=== PATIENT | female | born 1965 | race Caucasian/White ===

== ENCOUNTER 2018-04-04 08:50 | Emergency (ER) | payer MEDICAID ==
[~2018-04-04] VITALS: Ht 154.9 cm; Wt 63.0 kg
[2018-04-04 08:56] VITALS: BP 148/83
--- NOTE | 2018-04-04 08:59 | NUR ---
PT AMBULATES TO BED 4
--- NOTE | 2018-04-04 09:15 | NUR ---
52 YO F BIB SELF W/ C/O LEFT ARM PAIN 10/10 THAT IS SHARP AND THROBBING THAT RADIATES TO THE LEFT SIDE OF HER NECK X 2 DAYS. PT REPORTS THAT SHE DOES NOT RECALL AN INJURY, STATES THE ONLY THING SHE CAN THINK OF IS HOLDING/DANCING WITH HER 9 MONTH OLD GRANDDAUGHTER ON SATURDAY BEFORE THE PAIN BEGAN. REPORTS THAT SHE HAS NOT TAKEN MEDICATION FOR THE PAIN TODAY BECAUSE MOTRIN 800MG LAST NIGHT DID NOT HELP WITH THE PAIN. PT REPORTS THAT HEAT HAS BEEN EFFECTIVE. AAOX4. GCS 15. CMS INTACT. RR EVEN AND UNLABORED. LUNGS BILATERALLY CLEAR. ABD SOFT, NON-TENDER. ER MD SOW NOTIFIED. PT NEEDS MET. SAFETY PRECAUTIONS IN PLACE. WILL CONTINUE TO MONITOR.
--- NOTE | 2018-04-04 10:16 | NUR ---
XRAY AT BEDSIDE AT THIS TIME. WILL CONTINUE TO MONITOR.
[2018-04-04] MEDS ORDERED: KETOROLAC 30 MG/ML VIAL IM ONE (10:25)
[2018-04-04 11:22] VITALS: BP 123/71
--- NOTE | 2018-04-04 11:23 | NUR ---
Patient discharged with v/s stable. Written and verbal after care instructions given and explained. Patient alert, oriented and verbalized understanding of instructions. Ambulatory with steady gait. All questions addressed prior to discharge. ID band removed. Patient advised to follow up with PMD. Rx of Motrin and Medrol given. Patient educated on indication of medication including possible reaction and side effects. Opportunity to ask questions provided and answered.
== END 2018-04-04 11:23 | disposition home or self-care (01) ==
LOC: MED 08:50
DX: M75.32 Calcific tendinitis of left shoulder (principal)
CPT/HCPCS: 73030; 81002; 81025; 96372; 99284; J1885; Q0092

== ENCOUNTER 2023-02-13 17:06 | Emergency (ER) | payer MEDICAID, OTHER ==
[~2023-02-13] VITALS: Ht 154.9 cm; Wt 69.4 kg
[2023-02-13 17:09] VITALS: BP 132/88
[2023-02-13] MEDS ORDERED: KETOROLAC 30 MG/ML VIAL IM ONE (17:50)
--- NOTE | 2023-02-13 18:25 | NUR ---
AWAITING FOR RESULTS, TAKING PO ICED WATER, MEDICATED ORDERED
[2023-02-13] MEDS ORDERED: IBUP-2213 PO (18:27)
[2023-02-13] MEDS ORDERED: ACET-10509 PO (18:27)
[2023-02-13 19:41] VITALS: BP 132/88
--- NOTE | 2023-02-13 19:41 | NUR ---
Patient discharged with v/s stable. Written and verbal after care instructions given and explained. Patient verbalized understanding. Ambulatory with steady gait. Accompanied by family member home. All questions addressed prior to discharge. Advised to follow up with PMD.
== END 2023-02-13 22:25 | disposition home or self-care (01) ==
LOC: MED 17:06
DX: S60.021A Contusion of right index finger without damage to nail, initial encounter (principal); X58.XXXA Exposure to other specified factors, initial encounter; Y93.89 Activity, other specified; Y92.89 Other specified places as the place of occurrence of the external cause; Y99.8 Other external cause status
CPT/HCPCS: 29130; 73130; 96372; 99283; J1885; Q0092

== ENCOUNTER 2023-06-09 13:48 | Emergency (ER) | payer OTHER ==
[~2023-06-09] VITALS: Ht 157.5 cm; Wt 67.1 kg
[~2023-06-09 13:48] MED LIST: ACET-10509 PO; IBUP-2213 PO
[2023-06-09 13:59] VITALS: BP 144/81; PULSE 63; RESP 16; TEMP 98; O2SAT 98
[2023-06-09 14:44] LABS: BASOPHILS % (AUTO) 0.3 % (0.0-2.0); EOSINOPHILS # (AUTO) 0.1 K/uL (0-0.4); EOSINOPHILS % (AUTO) 1.4 % (0.0-4.0); HEMATOCRIT 40.2 % (36-48); HEMOGLOBIN 13.5 g/dL (12.0-16.0); MEAN CORPUSCULAR HEMOGLOBIN 30 pg (27-31); MEAN CORPUSCULAR HGB CONC 34 g/dL (33-37); MEAN CORPUSCULAR VOLUME 88.9 fL (80-94); MONOCYTES # (AUTO) 0.6 K/uL (0.8-1.0); MONOCYTES % (AUTO) 7.3 % (1.7-9.3); NEUTROPHILS # (AUTO) 4.2 K/uL (1.8-7.7); PLATELET COUNT (AUTO) 226 K/uL (140-450); RED BLOOD CELL COUNT(AUTO) 4.53 MIL/uL (4.20-5.40); RED CELL DISTRIBUTION WIDTH 12.9 % (11.6-13.7); WHITE BLOOD COUNT (AUTO) 7.9 K/uL (4.8-10.8)
[2023-06-09 15:05] LABS: ALANINE AMINOTRANSFERASE 18 U/L (12-78); ALBUMIN 3.6 g/dL (3.4-5.0); ALKALINE PHOSPHATASE 76 U/L (50-136); ANION GAP 8.9 (8-16); ASPARTATE AMINOTRANSFERASE 20 U/L (15-37); CALCIUM 9.1 mg/dL (8.5-10.1); CARBON DIOXIDE 30.2 mmol/L (21-32); CHLORIDE 103 mmol/L (98-107); CREATININE 0.9 mg/dL (0.6-1.3); GFR ARICAN-AMERICAN 83 mL/min (>90); GFR NON ARICAN-AMERICAN 68 mL/min (>90); GLUCOSE 91 mg/dL (74-106); POTASSIUM 4.1 mmol/L (3.5-5.1); SODIUM SERUM 138 mmol/L (136-145); TOTAL BILIRUBIN 0.3 mg/dL (0.0-1.0); TOTAL PROTEIN, SERUM 7.6 g/dL (6.4-8.2); UREA NITROGEN, BLOOD 14 mg/dL (7-18)
[2023-06-09] MEDS ORDERED: MECL-303 PO (17:21)
[2023-06-09] MEDS ORDERED: ACET-2619 PO (17:21)
[2023-06-09] MEDS ORDERED: ASPI-1822 PO (17:21)
[2023-06-09 17:39] VITALS: BP 119/71; PULSE 60; RESP 16; TEMP 96.6; O2SAT 97
== END 2023-06-09 17:39 | disposition home or self-care (01) ==
LOC: MED 13:48
DX: R07.89 Other chest pain (principal); R42 Dizziness and giddiness; R94.31 Abnormal electrocardiogram [ECG] [EKG]; Z79.899 Other long term (current) drug therapy
CPT/HCPCS: 36415; 71045; 80053; 84484; 85025; 85379; 93005; 99285; Q0092

== ENCOUNTER 2023-11-10 13:35 | Emergency (ER) | payer OTHER ==
[~2023-11-10] VITALS: Ht 154.9 cm; Wt 67.1 kg
[~2023-11-10 13:35] MED LIST changes: +ACET-2619 PO; +ASPI-1822 PO; +MECL-303 PO
[2023-11-10 13:41] VITALS: BP 122/77; PULSE 73; RESP 18; TEMP 96.6; O2SAT 97
[2023-11-10] MEDS ORDERED: DICYCLOMINE HCL LIQUID 20 MG, ALUMINUM HYD/MAG/SIMETHICONE 30 ML, LIDOCAINE VISCOUS 2% ... PO ONE ×3 (14:15)
[2023-11-10] MEDS ORDERED: OMEP40EC23 PO (14:25)
[2023-11-10] MEDS ORDERED: ATA25 PO (14:25)
[2023-11-10] MEDS ORDERED: ALUMINUM HYD/MAG/SIMETHICONE 30 ML UDC ONE (15:05)
[2023-11-10] MEDS ORDERED: DICYCLOMINE HCL LIQUID 10 MG/5 ML UDC ONE (15:05)
[2023-11-10 15:26] VITALS: BP 122/77; PULSE 73; RESP 18; TEMP 96.6; O2SAT 97
== END 2023-11-10 15:26 | disposition home or self-care (01) ==
LOC: MED 13:35
DX: R10.13 Epigastric pain (principal); F41.9 Anxiety disorder, unspecified; I25.10 Atherosclerotic heart disease of native coronary artery without angina pectoris; Z79.899 Other long term (current) drug therapy
CPT/HCPCS: 99283

== ENCOUNTER 2024-01-30 11:41 | Observation (INO) | payer OTHER ==
[~2024-01-30] VITALS: Ht 154.9 cm; Wt 68.0 kg
[~2024-01-30 11:41] MED LIST changes: +ATA25 PO; +OMEP40EC23 PO
[2024-01-30 11:46] VITALS: BP 144/82; PULSE 73; RESP 18; TEMP 98.6; O2SAT 96
[2024-01-30 12:59] LABS: BASOPHILS % (AUTO) 0.5 % (0.0-2.0); EOSINOPHILS % (AUTO) 0.5 % (0.0-4.0); HEMATOCRIT 39.2 % (36-48); HEMOGLOBIN 13.4 g/dL (12.0-16.0); LYMPHOCYTES # (AUTO) 2.2 K/uL (2.5-16.5); LYMPHOCYTES % (AUTO) 28.2 % (20.5-51.1); MEAN CORPUSCULAR HEMOGLOBIN 31 pg (27-31); MEAN CORPUSCULAR HGB CONC 34 g/dL (33-37); MEAN CORPUSCULAR VOLUME 89.5 fL (80-94); MONOCYTES # (AUTO) 0.5 K/uL (0.8-1.0); MONOCYTES % (AUTO) 6.3 % (1.7-9.3); NEUTROPHILS # (AUTO) 4.9 K/uL (1.8-7.7); NEUTROPHILS % (AUTO) 64.5 % (42.2-75.2); PLATELET COUNT (AUTO) 217 K/uL (140-450); RED BLOOD CELL COUNT(AUTO) 4.38 MIL/uL (4.20-5.40); RED CELL DISTRIBUTION WIDTH 13.2 % (11.6-13.7); WHITE BLOOD COUNT (AUTO) 7.7 K/uL (4.8-10.8)
[2024-01-30 13:17] LABS: ANION GAP 14.6 (8-16); CALCIUM 9.1 mg/dL (8.5-10.1); CARBON DIOXIDE 25.7 mmol/L (21-32); CREATININE 0.7 mg/dL (0.6-1.3); POTASSIUM 4.3 mmol/L (3.5-5.1)
[2024-01-30 13:18] LABS: INR 0.94 (0.8-1.2); PARTIAL THROMBOPLASTIN TIME 26.5 secs (22-35.6); PROTHROMBIN TIME 9.9 secs (10.8-13.4)
[2024-01-30] MEDS ORDERED: HEPARIN PER PHARMACY MC PRN (13:35)
[2024-01-30] MEDS: ASPIRIN 325 MG TAB PO ONE (13:53)
[2024-01-30] MEDS: ACETAMINOPHEN EXTRA STRENGTH 500 MG TAB PO ONE (13:54)
[2024-01-30] MEDS: KETOROLAC 30 MG/ML VIAL IVP ONE (13:55)
[2024-01-30] MEDS ORDERED: MORPHINE SULFATE 4 MG/ML SYR IVP PRN (15:45)
[2024-01-30] MEDS ORDERED: POTASSIUM CHLORIDE 10 MEQ TABER PO PRN (15:45)
[2024-01-30] MEDS ORDERED: HYDROcodone/APAP 5/325 MG 1 TAB TAB PO PRN (15:45)
[2024-01-30] MEDS ORDERED: MAGNESIUM OXIDE 400 MG TAB PO PRN (15:45)
[2024-01-30] MEDS ORDERED: ONDANSETRON 4 MG/2 ML VIAL IVP PRN (15:45)
[2024-01-30] MEDS ORDERED: KCL 20 MEQ IN 100 mL PREMIX 200 ML IV PRN (15:45)
[2024-01-30] MEDS ORDERED: ACETAMINOPHEN 325 MG TAB PO PRN (15:45)
[2024-01-30] MEDS ORDERED: MAG SULF 2000 MG/WATER PREMIX 50 ML IV PRN (15:45)
[2024-01-30] MEDS ORDERED: FAMO-90 PO (16:16)
[2024-01-30] MEDS ORDERED: NITR0.4T1 SL (16:16)
[2024-01-30 16:30] VITALS: BP 128/86; PULSE 68; RESP 18; TEMP 97; O2SAT 99
[2024-01-30 16:39] VITALS: PULSE 68; RESP 18; O2SAT 96
[2024-01-30 17:07] VITALS: PULSE 62
[2024-01-30 20:00] VITALS: BP 123/74; PULSE 67; PULSE 71; RESP 18; TEMP 97.6; O2SAT 98
[2024-01-31] VITALS: BP 115/63; PULSE 59; PULSE 64; RESP 20; TEMP 97.7; O2SAT 98
[2024-01-31 04:00] VITALS: BP 127/74; PULSE 58; PULSE 62; RESP 19; TEMP 97.2; O2SAT 97
[2024-01-31 06:35] LABS: ALBUMIN 3.5 g/dL (3.4-5.0); ANION GAP 16.6 (8-16); CALCIUM 9.3 mg/dL (8.5-10.1); CARBON DIOXIDE 23.7 mmol/L (21-32); MAGNESIUM 2.3 mg/dL (1.8-2.4); POTASSIUM 4.3 mmol/L (3.5-5.1); TOTAL BILIRUBIN 0.3 mg/dL (0.0-1.0); TOTAL PROTEIN, SERUM 7.3 g/dL (6.4-8.2)
[2024-01-31 08:00] VITALS: BP 124/77; PULSE 58; PULSE 59; RESP 16; TEMP 97.9; O2SAT 96
[2024-01-31] MEDS: KETOROLAC 15 MG/ML VIAL IVP PRN (08:55)
[2024-01-31 12:00] VITALS: BP 119/82; PULSE 73; PULSE 74; RESP 18; TEMP 98.3; O2SAT 99
[2024-01-31] MEDS ORDERED: MEDS-TO-BEDS MC SCH (21:00)
== END 2024-01-31 17:10 | disposition home or self-care (01) ==
LOC: MED 11:41 → MTU 15:45
PROVIDERS: ADMIT Hospitalist; ATTEND Hospitalist
DX: R07.89 Other chest pain (principal); F41.8 Other specified anxiety disorders; I44.7 Left bundle-branch block, unspecified; Z79.899 Other long term (current) drug therapy
CPT/HCPCS: 36415; 71045; 80048; 80053; 83735; 83880; 84484; 85025; 85610; 85730; 87081; 93005; 96365; 96372; 96374; 96376; G0378; J1644; J1885; 99285